=== PATIENT | female | born 1970 | race Caucasian/White ===

== ENCOUNTER 2016-11-16 13:04 | Emergency (ER) | payer OTHER ==
[~2016-11-16] VITALS: Ht 162.6 cm; Wt 80.7 kg
[2016-11-16 13:40] VITALS: BP 119/76
--- NOTE | 2016-11-16 13:53 | NUR ---
Patient ambulated to bed 05.
--- NOTE | 2016-11-16 13:55 | NUR ---
46F BIB SELF C/O ANTERIOR HEADACHE, PRESSURE, RADIATES TO BL SIDES OF HEAD, 06/05 X 3 DAYS; PT STATES DIZZY, BUT DENIES INJURY/TRAUMA TO HEAD, OR BLURRY VISION AT THIS TIME; PT C/O LEFT SIDED ABDOMINAL PAIN, SHARP, NON-RADIATING, 04/05 X 3 DAYS; ABDOMEN ROUND, NON-TENDER, ACTIVE BOWEL SOUNDS X 4 QUADRANTS; PT STATES HAS NAUSEA, BUT DENIES VOMITING/DIARRHEA AT THIS TIME; A&OX4, BL LUNG SOUND CLEAR, RR EVEN/UNLABORED, SKIN IS WARM/DRY/INTACT AT THIS TIME; PT RESTING IN BED W/ HOB ELEVATED AND IN LOWEST POSITION; POSITIONED FOR COMFORT; ER MD MADE AWARE OF STATUS. WILL CONTINUE TO MONITOR.
--- NOTE | 2016-11-16 15:38 | NUR ---
Sunil garcia in EDM - 11/16/16 at 1542 by MEDSABINO RICKY REYES EVALUATING PT AT BEDSIDE.
--- NOTE | 2016-11-16 15:38 | NUR ---
ER MD DR. TA EVALUATING PT AT BEDSIDE.
[2016-11-16] MEDS ORDERED: IBUPROFEN 600 MG TAB PO ONE (15:40)
[2016-11-16] MEDS ORDERED: ONDANSETRON 4 MG ODT PO ONE (15:40)
[2016-11-16] MEDS ORDERED: ACETAMINOPHEN EXTRA STRENGTH 500 MG TAB PO ONE (15:40)
[2016-11-16 17:48] VITALS: BP 131/72
--- NOTE | 2016-11-16 17:48 | NUR ---
Patient discharged with v/s stable. Written and verbal after care instructions given and explained. Patient alert, oriented and verbalized understanding of instructions. Ambulatory with steady gait. All questions addressed prior to discharge. ID band removed. Patient advised to follow up with PMD. Rx of TYLENOL W/ CODEINE NO.3 given. Patient educated on indication of medication including possible reaction and side effects. Opportunity to ask questions provided and answered.
== END 2016-11-16 17:48 | disposition home or self-care (01) ==
LOC: MED 13:04
DX: B34.9 Viral infection, unspecified (principal); Z88.5 Allergy status to narcotic agent
CPT/HCPCS: 36415; 82948; 87804; 99284; S0119

== ENCOUNTER 2017-08-30 15:12 | Emergency (ER) | payer OTHER ==
[~2017-08-30] VITALS: Ht 160 cm; Wt 87.2 kg
[2017-08-30 15:17] VITALS: BP 113/71
--- NOTE | 2017-08-30 16:35 | NUR ---
PT C/O X1 WEEK OF NASAL CONGESTION, MACIAS, SOAR THROAT, AND GENERAL BODY ACHES. IN CHAIR. A&OX4, NO RESPIRATORY DISTRESS, ABLE TO VERBALIZE NEEDS, MD AWARE, CONTINUE TO MONITOR.
[2017-08-30 17:33] VITALS: BP 113/71
--- NOTE | 2017-08-30 17:41 | NUR ---
Patient discharged with v/s stable. Written and verbal after care instructions given and explained. Patient alert, oriented and verbalized understanding of instructions. Ambulatory with steady gait. All questions addressed prior to discharge. ID band removed. Patient advised to follow up with PMD. Rx of MOTRIN, ROBITUSSIN, AND TAMIFLU given. Patient educated on indication of medication including possible reaction and side effects. Opportunity to ask questions provided and answered.
--- NOTE | 2017-08-30 17:46 | NUR ---
Note radha in EDM - 08/30/17 at 1747 by ZAIRA Patient discharged with v/s stable. Written and verbal after care instructions given and explained to mom who expressed understanding. Patient alert, oriented and verbalized understanding of instructions. Ambulatory with steady gait. All questions addressed prior to discharge. ID band removed. Patient advised to follow up with PMD. Rx of tylenol, motrin, and tamiful given. Patient educated on indication of medication including possible reaction and side effects. Opportunity to ask questions provided and answered.
== END 2017-08-30 17:41 | disposition home or self-care (01) ==
LOC: MED 15:12
DX: J11.1 Influenza due to unidentified influenza virus with other respiratory manifestations (principal); J02.9 Acute pharyngitis, unspecified; Z88.5 Allergy status to narcotic agent
CPT/HCPCS: 99283

== ENCOUNTER 2017-09-01 19:49 | Emergency (ER) | payer OTHER ==
[~2017-09-01] VITALS: Ht 165.1 cm; Wt 87.1 kg
[2017-09-01 20:08] VITALS: BP 131/81
--- NOTE | 2017-09-01 20:14 | NUR ---
TO LOBBY, A/W YANIRA ADAMSON NOTED
--- NOTE | 2017-09-01 23:16 | NUR ---
AMBULATED TO ER BED 3
--- NOTE | 2017-09-01 23:20 | NUR ---
PATIENT PRESENTS TO ED WITH C/O COUGH. SEEN IN ER 3 DAYS AGO PT DENIES N/V/D; SKIN IS PINK/WARM/DRY; AAOX4 WITH EVEN AND STEADY GAIT; LUNGS CLEAR BL; HR EVEN AND REGULAR; PT DENIES ANY FEVER, CP OR SOB AT THIS TIME; PATIENT STATES PAIN OF 0/10 AT THIS TIME; VSS; PATIENT POSITIONED FOR COMFORT; HOB ELEVATED; BEDRAILS UP X2; BED DOWN. ER MD MADE AWARE OF PT STATUS.
[2017-09-02] MEDS ORDERED: ALBUTEROL HFA MDI 90 MCG/ACTUATION 8 GM INH PRN (00:35)
[2017-09-02 01:11] VITALS: BP 127/78
--- NOTE | 2017-09-02 01:13 | NUR ---
Patient discharged with v/s stable. Written and verbal after care instructions given and explained. Patient alert, oriented and verbalized understanding of instructions. Ambulatory with steady gait. All questions addressed prior to discharge. ID band removed. Patient advised to follow up with PMD. Rx of TESSALON 100MG, PROAIR HFA 90 HHN given. Patient educated on indication of medication including possible reaction and side effects. Opportunity to ask questions provided and answered.
== END 2017-09-02 01:11 | disposition home or self-care (01) ==
LOC: MED 19:49
DX: J11.1 Influenza due to unidentified influenza virus with other respiratory manifestations (principal); Z88.5 Allergy status to narcotic agent
CPT/HCPCS: 71045; 99283

== ENCOUNTER 2017-10-17 15:42 | Emergency (ER) | payer OTHER ==
[~2017-10-17] VITALS: Ht 165.1 cm; Wt 88.5 kg
[2017-10-17 15:54] VITALS: BP 140/87
--- NOTE | 2017-10-17 16:01 | NUR ---
STREP AND INFLUENZA SWABS COLLECTED IN TRIAGE AND SENT TO LAB.
--- NOTE | 2017-10-17 17:43 | NUR ---
DR MEAD IN ROOM FOR EXAM
[2017-10-17 17:55] VITALS: BP 132/81
--- NOTE | 2017-10-17 17:56 | NUR ---
Patient discharged with v/s stable. Written and verbal after care instructions given and explained. Patient alert, oriented and verbalized understanding of instructions. Ambulatory with steady gait. All questions addressed prior to discharge. ID band removed. Patient advised to follow up with PMD. Rx of KEFLEX, PROMETHAZINE given. Patient educated on indication of medication including possible reaction and side effects. Opportunity to ask questions provided and answered.
== END 2017-10-17 17:56 | disposition home or self-care (01) ==
LOC: MED 15:42
DX: J06.9 Acute upper respiratory infection, unspecified (principal); Z88.5 Allergy status to narcotic agent
CPT/HCPCS: 36415; 87081; 87804; 99284

== ENCOUNTER 2018-03-03 14:11 | Emergency (ER) | payer OTHER ==
[~2018-03-03] VITALS: Ht 160 cm; Wt 86.6 kg
[2018-03-03 14:53] VITALS: BP 107/85
[2018-03-03] MEDS ORDERED: KETOROLAC 30 MG/ML VIAL ONE (19:04)
[2018-03-03] MEDS: KETOROLAC 60 MG/2 ML VIAL IM ONE (19:06)
[2018-03-03 19:24] VITALS: BP 131/78
== END 2018-03-03 19:24 | disposition home or self-care (01) ==
LOC: MED 14:11
DX: N83.202 Unspecified ovarian cyst, left side (principal); Z88.6 Allergy status to analgesic agent
CPT/HCPCS: 81002; 81025; 96372; 99283; J1885

== ENCOUNTER 2018-11-06 10:07 | Emergency (ER) | payer OTHER ==
[~2018-11-06] VITALS: Ht 162.6 cm; Wt 81.2 kg
[2018-11-06 10:16] VITALS: BP 117/67
--- NOTE | 2018-11-06 10:40 | NUR ---
PATIENT PRESENTS TO ED WITH THE CHIEF C/O SORE THROAT AND NASAL CONGESTION FOR SIX DAYS. PT REPORTS HARD TIME BREATHING THROUGH NOSE DUE TO CONGESTION. HX OF NOSE SURGERY. REPORTS COUGH NO BLOOD IN COUGH. LUNGS CLEAR. DENIES N/V/D. SKIN IS PINK/WARM/DRY. AAOX4 WITH EVEN AND STEADY GAIT. LUNGS CLEAR BL. HR EVEN AND REGULAR; PT DENIES ANY FEVER, CP, SOB, OR COUGH AT THIS TIME; PATIENT STATES PAIN OF 10/10 AT THIS TIME. VSS. PATIENT POSITIONED FOR COMFORT; HOB ELEVATED; BEDRAILS UP X2. BED DOWN. ER MD MADE AWARE OF PT STATUS.
[2018-11-06] MEDS ORDERED: KETOROLAC 60 MG/2 ML VIAL IM ONE (11:15)
--- NOTE | 2018-11-06 11:44 | NUR ---
PT APPEARS TO BE RELAXED RESTING IN BED. VERBALIZED PAIN DECREASING.
--- NOTE | 2018-11-06 11:45 | NUR ---
Patient discharged with v/s stable. Written and verbal after care instructions given and explained. Patient alert, oriented and verbalized understanding of instructions. Ambulatory with steady gait. All questions addressed prior to discharge. ID band removed. Patient advised to follow up with PMD. Rx of TESSALON, NAPROSYN AND CLARITIN given. Patient educated on indication of medication including possible reaction and side effects. Opportunity to ask questions provided and answered.
[2018-11-06 11:46] VITALS: BP 118/69
== END 2018-11-06 11:45 | disposition home or self-care (01) ==
LOC: MED 10:07
DX: B34.9 Viral infection, unspecified (principal); H92.02 Otalgia, left ear; Z88.5 Allergy status to narcotic agent; Z90.710 Acquired absence of both cervix and uterus; Z98.890 Other specified postprocedural states
CPT/HCPCS: 96372; 99283; J1885

== ENCOUNTER 2018-11-21 12:48 | Emergency (ER) | payer OTHER ==
[~2018-11-21] VITALS: Ht 162.6 cm; Wt 81.6 kg
[2018-11-21 13:02] VITALS: BP 129/75
--- NOTE | 2018-11-21 13:10 | NUR ---
48Y/F BIB SELF WITH C/O LLQ AB PAIN X 3 DAYS, NON RADIATING, -N/V/D 10/ SHARP SEVERE PAIN , PT STATES SHE TOOK TRAMADOL AT 1130, NOT HELPING, PT IS AAOX4, VSS, BED DOWN, BEDRAIL UP X 1, ER MD AWARE AND NOTIFIED OF PT STATUS. HX OF OVARIAN CYST
--- NOTE | 2018-11-21 13:36 | NUR ---
Patient being evaluated by physician at bedside.
--- NOTE | 2018-11-21 13:51 | NUR ---
URINE COLLECTED AND SENT TO LAB
[2018-11-21 14:03] LABS: BASOPHILS # (AUTO) 0.1 K/uL (0.00-0.22); BASOPHILS % (AUTO) 0.6 % (0.0-2.0); EOSINOPHILS # (AUTO) 0.2 K/uL (0-0.4); EOSINOPHILS % (AUTO) 1.6 % (0.0-4.0); HEMATOCRIT 42.5 % (36-48); HEMOGLOBIN 14.3 g/dL (12.0-16.0); LYMPHOCYTES % (AUTO) 29.1 % (20.5-51.1); MEAN CORPUSCULAR HEMOGLOBIN 31 pg (27-31); MEAN CORPUSCULAR HGB CONC 34 g/dL (33-37); MEAN CORPUSCULAR VOLUME 93.5 fL (80-94); MONOCYTES # (AUTO) 0.7 K/uL (0.8-1.0); NEUTROPHILS # (AUTO) 6.4 K/uL (1.8-7.7); NEUTROPHILS % (AUTO) 61.7 % (42.2-75.2); PLATELET COUNT (AUTO) 299 K/uL (140-450); RED BLOOD CELL COUNT(AUTO) 4.54 MIL/uL (4.20-5.40); RED CELL DISTRIBUTION WIDTH 13.9 % (11.6-13.7); WHITE BLOOD COUNT (AUTO) 10.4 K/uL (4.8-10.8)
[2018-11-21 14:13] LABS: APPEARANCE,URINE CLEAR (CLEAR); BILIRUBIN,URINE NEGATIVE (NEGATIVE); BLOOD, URINE NEGATIVE (NEGATIVE); COLOR,URINE YELLOW (YELLOW); LEUKOCYTE ESTERASE ,URINE NEGATIVE (NEGATIVE); NITRITE, URINE NEGATIVE (NEGATIVE); UGLUCOSE NEGATIVE (NEGATIVE)
[2018-11-21 14:18] LABS: CARBON DIOXIDE 29.1 mmol/L (21-32); CREATININE 0.8 mg/dL (0.6-1.3); POTASSIUM 4.1 mmol/L (3.5-5.1); TOTAL BILIRUBIN 0.4 mg/dL (0.0-1.0)
[2018-11-21] MEDS ORDERED: metroNIDAZOLE 250 MG TAB PO ONE (15:05)
[2018-11-21 15:54] VITALS: BP 132/72
--- NOTE | 2018-11-21 15:55 | NUR ---
Patient discharged with v/s stable. Written and verbal after care instructions given and explained. Patient alert, oriented and verbalized understanding of instructions. Ambulatory with steady gait. All questions addressed prior to discharge. ID band removed. Patient advised to follow up with PMD. Rx of CIPROFLOXACIN, ZOFRAN,FLAGYL given. Patient educated on indication of medication including possible reaction and side effects. Opportunity to ask questions provided and answered.
== END 2018-11-21 15:55 | disposition home or self-care (01) ==
LOC: MED 12:48
DX: K57.92 Diverticulitis of intestine, part unspecified, without perforation or abscess without bleeding (principal); Z88.5 Allergy status to narcotic agent; Z90.710 Acquired absence of both cervix and uterus
CPT/HCPCS: 36415; 80053; 81003; 85025; 99284

== ENCOUNTER 2018-11-23 19:07 | Inpatient (IN) | payer OTHER ==
[~2018-11-23] VITALS: Ht 162.6 cm; Wt 78.9 kg
[2018-11-23 19:13] VITALS: BP 137/71
--- NOTE | 2018-11-23 21:10 | NUR ---
PT AMBULATEF TO ER BED 05
--- NOTE | 2018-11-23 21:23 | NUR ---
PT TO ED WITH C/O HEADACHE WITH NAUSEA. NO NEURO DEFICTS NOTED. PT DENIES EPISODES OF VOMITTING. PT REPORTS TAKING NORCO 5/325 X 2 FOR PAIN AT HOME WITH NO RELIEF. PT PLACED INTO BED, PENDING MD NAVARRO.
[2018-11-23] MEDS ORDERED: metroNIDAZOLE 500 MG/NS PREMIX 100 ML IV ONE (21:30)
[2018-11-23] MEDS ORDERED: KETOROLAC 30 MG/ML VIAL IVP ONE (21:30)
[2018-11-23] MEDS ORDERED: LEVOFLOXACIN 500 MG/D5W PREMIX 100 ML IV ONE (21:30)
[2018-11-23] MEDS ORDERED: NACL 0.9% 1,000 ML IV ONE (21:30)
--- NOTE | 2018-11-23 21:45 | NUR ---
LAB AT BEDSIDE.
[2018-11-23 22:09] LABS: BASOPHILS % (AUTO) 0.6 % (0.0-2.0); EOSINOPHILS # (AUTO) 0.2 K/uL (0-0.4); EOSINOPHILS % (AUTO) 2.2 % (0.0-4.0); HEMOGLOBIN 12.8 g/dL (12.0-16.0); LYMPHOCYTES # (AUTO) 2.1 K/uL (2.5-16.5); MEAN CORPUSCULAR HEMOGLOBIN 32 pg (27-31); MEAN CORPUSCULAR HGB CONC 34 g/dL (33-37); MONOCYTES # (AUTO) 0.6 K/uL (0.8-1.0); MONOCYTES % (AUTO) 8.1 % (1.7-9.3); NEUTROPHILS # (AUTO) 4.5 K/uL (1.8-7.7); NEUTROPHILS % (AUTO) 61.1 % (42.2-75.2); PLATELET COUNT (AUTO) 282 K/uL (140-450); RED BLOOD CELL COUNT(AUTO) 4.05 MIL/uL (4.20-5.40); RED CELL DISTRIBUTION WIDTH 13.8 % (11.6-13.7); WHITE BLOOD COUNT (AUTO) 7.4 K/uL (4.8-10.8)
[2018-11-23 22:10] LABS: APPEARANCE,URINE CLEAR (CLEAR); BILIRUBIN,URINE NEGATIVE (NEGATIVE); BLOOD, URINE NEGATIVE (NEGATIVE); LEUKOCYTE ESTERASE ,URINE TRACE (NEGATIVE); NITRITE, URINE NEGATIVE (NEGATIVE); PH,URINE 5.5 (5.0-9.0); UGLUCOSE NEGATIVE (NEGATIVE)
[2018-11-23 22:19] LABS: COLOR,URINE STRAW (YELLOW)
[2018-11-23 22:22] LABS: RBC,URINE NONE SEEN /HPF (0-5)
[2018-11-23 22:23] LABS: WBC,URINE 0-5 /HPF (0-5)
--- NOTE | 2018-11-23 22:30 | NUR ---
PT REPORTS PAIN DECREASED TO 4/10 AFTER TORADOL ADMIN.
[2018-11-23 22:36] LABS: ALBUMIN 3.4 g/dL (3.4-5.0); ANION GAP 12.1 (8-16); CARBON DIOXIDE 28.6 mmol/L (21-32); CREATININE 1.2 mg/dL (0.6-1.3); POTASSIUM 4.7 mmol/L (3.5-5.1); TOTAL BILIRUBIN 0.3 mg/dL (0.0-1.0)
[2018-11-24 00:10] VITALS: BP 119/54
--- NOTE | 2018-11-24 00:10 | NUR ---
Patient will be admitted to care of DR GUZMAN. Admited to MED SURG. Will go to room 123B. Belongings list completed. Report to AV CHAUDHARI.
--- NOTE | 2018-11-24 00:10 | NUR ---
RECEIVED REPORT FROM ER NURSE. PATIENT AWAKE, ALERT, AND COOPERATIVE. RESPIRATION EVEN UNLABORED ON ROOM AIR. DENIES PAIN. SKIN IS WARM, DRY, AND INTACT. IV PATENT AND INTACT. LUNG SOUNDS CLEAR ON AUSCULTATION. BOWEL SOUNDS ACTIVE IN 4 QUADRANTS. ABDOMEN SOFT AND NON-TENDER. PATIENT IS AMBULATORY AND ABLE TO VERBALIZES NEEDS. MRSA SCREEN DONE. VITALS: BP 119/54, HR 53, RR 16, SPO2 97% ROOM AIR, T 97.8. ORIENT PATIENT TO ROOM, STAFF, AND CALL LIGHT. PLAN OF CARE WAS DISCUSSED. ALL SAFETY MEASURE ARE IN PLACE. BED IS AT LOW POSITION. CALL LIGHT WITHIN REACH AND VERBALIZE ITS USE. WILL CONTINUE TO MONITOR
[2018-11-24] MEDS: DEXT 5% / NACL 0.45% 1,000 ML IV SCH ×2 (01:55→14:35)
--- NOTE | 2018-11-24 02:00 | NUR ---
CHECKED PATIENT. PATIENT SLEEPING COMFORTABLY. RESPIRATION EVEN UNLABORED ON ROOM AIR. NO DISTRESS NOTED. WILL CONTINUE TO MONITOR.
[2018-11-24] MEDS ORDERED: MORPHINE SULFATE 2 MG/ML SYR IVP PRN (02:30)
[2018-11-24] MEDS ORDERED: INFLUENZA VIRUS VACCINE QUAD 0.5 ML SYR IMVAC PRN (03:20)
--- NOTE | 2018-11-24 04:00 | NUR ---
CHECKED PATIENT. PATIENT SLEEPING RESPIRATION EVEN UNLABORED ON ROOM AIR. NO DISTRESS NOTED. WILL CONTINUE TO MONITOR.
[2018-11-24] MEDS: metroNIDAZOLE 500 MG/NS PREMIX 100 ML IV SCH ×3 (04:20→20:11)
--- NOTE | 2018-11-24 07:11 | NUR ---
ENDORSED PATIENT TO DAY SHIFT NURSE FOR CONTINUITY OF CARE. PATIENT IS STABLE.
--- NOTE | 2018-11-24 07:19 | NUR ---
RECEIVED REPORT FROM MINING SUPPORT WORKER RN NURSE. PT RESTING IN BED, EASILY AROUSABLE BY VOICE. RESPIRATIONS EVEN AND UNLABORED, ON ROOM AIR. STATES MILD HEADACHE, NO NEED FOR PAIN MEDICATION. SKIN IS WARM, DRY, AND INTACT. HYPOACTIVE BOWEL SOUNDS. IV PATENT AND INTACT, INFUSING IVF PER MD ORDERS. PATIENT IS AMBULATORY WITHOUT ASSIST. ALL SAFETY PRECAUTIONS IN PLACE, WILL CONTINUE TO MONITOR.
[2018-11-24 08:00] VITALS: BP 128/71
--- NOTE | 2018-11-24 09:29 | NUR ---
DR. CERRATO HAS SEEN PATIENT, DISCUSSED POC, AND ANSWERED ALL QUESTIONS. PT VERBALIZED UNDERSTANDING.
--- NOTE | 2018-11-24 09:53 | NUR ---
PT TAKEN FOR CT HEAD.
[2018-11-24 09:56] LABS: BASOPHILS % (AUTO) 0.7 % (0.0-2.0); EOSINOPHILS # (AUTO) 0.2 K/uL (0-0.4); EOSINOPHILS % (AUTO) 2.7 % (0.0-4.0); HEMATOCRIT 38.8 % (36-48); LYMPHOCYTES # (AUTO) 1.7 K/uL (2.5-16.5); LYMPHOCYTES % (AUTO) 25.5 % (20.5-51.1); MEAN CORPUSCULAR HEMOGLOBIN 32 pg (27-31); MEAN CORPUSCULAR HGB CONC 33 g/dL (33-37); MEAN CORPUSCULAR VOLUME 94.5 fL (80-94); MONOCYTES # (AUTO) 0.6 K/uL (0.8-1.0); MONOCYTES % (AUTO) 8.7 % (1.7-9.3); NEUTROPHILS # (AUTO) 4.1 K/uL (1.8-7.7); NEUTROPHILS % (AUTO) 62.4 % (42.2-75.2); PLATELET COUNT (AUTO) 300 K/uL (140-450); RED BLOOD CELL COUNT(AUTO) 4.11 MIL/uL (4.20-5.40); RED CELL DISTRIBUTION WIDTH 13.4 % (11.6-13.7); WHITE BLOOD COUNT (AUTO) 6.6 K/uL (4.8-10.8)
[2018-11-24] MEDS ORDERED: ACETAMINOPHEN 325 MG TAB PO PRN (10:05)
[2018-11-24 10:09] LABS: ANION GAP 10.5 (8-16); CARBON DIOXIDE 29.2 mmol/L (21-32); CREATININE 1.2 mg/dL (0.6-1.3); POTASSIUM 4.7 mmol/L (3.5-5.1)
[2018-11-24 10:11] LABS: ALBUMIN 3.1 g/dL (3.4-5.0); TOTAL BILIRUBIN 0.3 mg/dL (0.0-1.0)
--- NOTE | 2018-11-24 11:40 | NUR ---
ADMINISTERED TYLENOL FOR C/O MILD HEADACHE.
--- NOTE | 2018-11-24 13:13 | NUR ---
NOTIFIED PHARMACY THAT PT STATES SHE HAS CHEST PAIN REACTION TO CODEINE. STATES SHE DOES NOT THINK SHE EVER HAD MORPHINE BEFORE.
--- NOTE | 2018-11-24 13:16 | NUR ---
PATIENT TOLERATED CLEAR LIQUID DIET WELL. NO N/V VOMITING, ABD PAIN. FINISHED LUNCH TRAY AND STILL FEELS HUNGER. WILL ADVANCE DIET FOR DINNER.
[2018-11-24 16:00] VITALS: BP 117/69
--- NOTE | 2018-11-24 17:21 | NUR ---
PATIENT DENIES ABD PAIN AND DENIES MACIAS AT THIS TIME. PT STATES SHE "FEELS GOOD".
--- NOTE | 2018-11-24 19:28 | NUR ---
ENDORSED POC TO ROLL TRUCKER RN. PT IN STABLE CONDITION. ENDORSED TO ADV DIET AT TOLERATED PER MD ORDERS.
--- NOTE | 2018-11-24 19:30 | NUR ---
RECEIVED REPORT FROM DAY SHIFT NURSE FOR CONTINUITY OF CARE. PATIENT AWAKE, ALERT,AND COOPERATIVE. RESPIRATION EVEN UNLABORED ON ROOM AIR. DENIES PAIN. SKIN IS WARM AND DRY. IV PATENT AND INTACT. PATIENT IS AMBULATORY WITHOUT ASSIST. PLAN OF CARE WAS DISCUSSED. ALL SAFETY MEASURES ARE IN PLACE. BED IS AT LOW POSITION. CALL LIGHT WITHIN REACH AND VERBALIZES ITS USE. WILL CONTINUE TO MONITOR.
--- NOTE | 2018-11-24 20:00 | NUR ---
INITIAL ASSESSMENT DONE. VITALS WERE TAKEN. PATIENT CONDITION STABLE. WILL CONTINUE TO MONITOR.
--- NOTE | 2018-11-24 20:15 | NUR ---
SCHEDULE MEDS WERE GIVEN AND PATIENT TOLERATED WELL. NO DISTRESS NOTED. WILL CONTINUE TO MONITOR
[2018-11-24] MEDS ORDERED: LEVOFLOXACIN 500 MG/D5W PREMIX 100 ML IV SCH (23:00)
[2018-11-25] VITALS: BP 119/51
--- NOTE | 2018-11-25 | NUR ---
VITALS WERE TAKEN. PATIENT CONDITION STABLE. NO DISTRESS NOTED. WILL CONTINUE TO MONITOR.
--- NOTE | 2018-11-25 02:00 | NUR ---
CHECKED PATIENT. PATIENT SLEEPING. RESPIRATION EVEN UNLABORED ON ROOM AIR. NO DISTRESS NOTED. WILL CONTINUE TO MONITOR.
[2018-11-25] MEDS: DEXT 5% / NACL 0.45% 1,000 ML IV SCH ×2 (03:54→17:15)
[2018-11-25] MEDS: metroNIDAZOLE 500 MG/NS PREMIX 100 ML IV SCH ×2 (03:59→12:21)
--- NOTE | 2018-11-25 04:00 | NUR ---
CHECKED PATIENT. PATIENT SLEEPING RESPIRATION EVEN UNLABORED ON ROOM AIR. NO DISTRESS NOTED. WILL CONTINUE TO MONITOR.
[2018-11-25 07:09] LABS: BASOPHILS % (AUTO) 0.8 % (0.0-2.0); EOSINOPHILS # (AUTO) 0.2 K/uL (0-0.4); EOSINOPHILS % (AUTO) 3.2 % (0.0-4.0); HEMATOCRIT 38.6 % (36-48); HEMOGLOBIN 12.8 g/dL (12.0-16.0); LYMPHOCYTES # (AUTO) 2.1 K/uL (2.5-16.5); LYMPHOCYTES % (AUTO) 34.1 % (20.5-51.1); MEAN CORPUSCULAR HEMOGLOBIN 31 pg (27-31); MEAN CORPUSCULAR HGB CONC 33 g/dL (33-37); MEAN CORPUSCULAR VOLUME 94.6 fL (80-94); MONOCYTES # (AUTO) 0.4 K/uL (0.8-1.0); MONOCYTES % (AUTO) 6.6 % (1.7-9.3); NEUTROPHILS # (AUTO) 3.5 K/uL (1.8-7.7); NEUTROPHILS % (AUTO) 55.3 % (42.2-75.2); PLATELET COUNT (AUTO) 324 K/uL (140-450); RED BLOOD CELL COUNT(AUTO) 4.08 MIL/uL (4.20-5.40); RED CELL DISTRIBUTION WIDTH 13.8 % (11.6-13.7); WHITE BLOOD COUNT (AUTO) 6.3 K/uL (4.8-10.8)
[2018-11-25 07:14] LABS: ANION GAP 10.5 (8-16); CARBON DIOXIDE 27.8 mmol/L (21-32); CREATININE 0.9 mg/dL (0.6-1.3); POTASSIUM 4.3 mmol/L (3.5-5.1); TOTAL BILIRUBIN 0.4 mg/dL (0.0-1.0)
--- NOTE | 2018-11-25 07:37 | NUR ---
ENDORSED PATIENT TO DAY SHIFT NURSE. PATIENT STABLE
--- NOTE | 2018-11-25 07:38 | NUR ---
RECEIVED REPORT FROM MUD PLANT OPERATOR NURSE. PATIENT LYING DOWN IN BED COMFORTABLY. NO DISTRESS NOTED. DENIES ANY PAIN. DENIES ANY VOMITING, ABD PAIN THROUGHOUT MUD PLANT OPERATOR. RESPIRATIONS EVEN, UNLABORED, ON ROOM AIR. AAOX4, CALM, COOPERATIVE, SKIN COLOR APPROPRIATE TO ETHNICITY, WARM TO TOUCH. SKIN INTACT. IV SITE INTACT, PATENT, AND INFUSING IVF PER MD ORDERS. REVIEWED PLAN OF CARE WITH PATIENT. PATIENT VERBALIZED UNDERSTANDING. SAFETY MEASURES IN PLACE, CALL LIGHT WITHIN REACH. WILL CONTINUE TO MONITOR.
[2018-11-25 08:00] VITALS: BP 130/71
--- NOTE | 2018-11-25 08:45 | NUR ---
PATIENT HAS BEEN SCREENED AND CATEGORIZED MODERATE NUTRITION RISK. PATIENT WILL BE SEEN WITHIN 3-5 DAYS OF ADMISSION. 11/26/18[address]
[2018-11-25] MEDS ORDERED: ENOXAPARIN 40 MG/0.4 ML SYR SUBQ SCH (09:00)
--- NOTE | 2018-11-25 09:29 | NUR ---
PATIENT SITTING IN BED ON HER PHONE. NO DISTRESS NOTED. DENIES ANY PAIN. DENIES ANY NAUSEA AFTER BREAKFAST. REFUSED ENOXAPARIN INJECTION AT THIS TIME. WILL CONTINUE TO MONITOR.
--- NOTE | 2018-11-25 11:39 | NUR ---
PATIENT SITTING IN BED ON HER PHONE. NO DISTRESS NOTED. DENIES ANY PAIN. WILL CONTINUE TO MONITOR.
--- NOTE | 2018-11-25 14:58 | NUR ---
PATIENT SITTING DOWN IN BED ON HER PHONE. NO DISTRESS NOTED. DENIES ANY ABD PAIN. DENIES N/V AFTER REGULAR DIET LUNCH. WILL CONTINUE TO MONITOR.
[2018-11-25 16:00] VITALS: BP 132/71
--- NOTE | 2018-11-25 18:12 | NUR ---
DISCHARGE INSTRUCTIONS GIVEN TO PATIENT IN PREFERRED LANGUAGE OF [place]. ALL BELONGINGS AND PAPERWORK WITH PATIENT. ANSWERED ALL OF PATIENT'S QUESTIONS REGARDING DISCHARGE. PATIENT'S BROTHER AT LOBBY WAITING FOR PATIENT. IV SITE REMOVED WITH MINIMAL BLOOD AND LUMEN COMPLETELY INTACT. ID BANDS REMOVED. AWAITING FOR PATIENT TO GET DRESSED.
--- NOTE | 2018-11-25 18:15 | NUR ---
ESCORTED PATIENT DOWN TO LOBBY VIA STEADY AMBULATION. PATIENT DISCHARGED AT THIS TIME IN STABLE CONDITION TO HOME.
--- NOTE | 2018-11-26 14:45 | NUR ---
CM NOTE I SPOKE WITH BE # [phone] TO SCHEDULE PATIENT'S OUTPATIENT FOLLOW UP APPOINTMENT WITH DR. COCO FREEMAN ON NOVEMBER 29, 2018, 0930, AT THE CLINIC AT [address] [place] [address]. I GAVE THE PATIENT HER OUTPATIENT FOLLOW UP SCHEDULE.
== END 2018-11-25 18:15 | disposition home or self-care (01) | DRG 244 ==
LOC: MED 19:07 → MTU 23:28
PROVIDERS: ADMIT Hospitalist; ATTEND Hospitalist
DX: K57.92 Diverticulitis of intestine, part unspecified, without perforation or abscess without bleeding (principal); N17.9 Acute kidney failure, unspecified; R73.9 Hyperglycemia, unspecified; R51 Headache; J30.9 Allergic rhinitis, unspecified; J32.9 Chronic sinusitis, unspecified; R74.0 Nonspecific elevation of levels of transaminase and lactic acid dehydrogenase [LDH]; Z88.5 Allergy status to narcotic agent; Z90.710 Acquired absence of both cervix and uterus
CPT/HCPCS: 36415; 70450; 76770; 80053; 81001; 82150; 83036; 83605; 83690; 85025; 86140; 87040; 87081; 96365; 96367; 96375; 99285; J1885; J1956; J3490; J7042; Q0092

== ENCOUNTER 2019-01-12 10:25 | Emergency (ER) | payer OTHER ==
[~2019-01-12] VITALS: Ht 162.6 cm; Wt 81.6 kg
[2019-01-12 10:29] VITALS: BP 131/78
--- NOTE | 2019-01-12 10:35 | NUR ---
PATIENT AMBULATED TO BED 2 AT THIS TIME.
--- NOTE | 2019-01-12 10:35 | NUR ---
BIB SELF. C/O SHOULDER AND NECK PAIN 10/ WITH STIFFNESS X1 DAY, HEADACHE 10/10, MILD DIZZINESS SINCE THIS MORNING. PT TX WITH TYLENOL AT 0200 WITH NO RELIEF PT REPORTS FEELING HOT THIS MORNING, CURRENT TEMP 98.4. DENIES N/V/D. PERRLA BRISK 3MM. FULL CLEAR SPEECH. STEADY GAIT. HOB UP. BED SIDE RAILS UP X1. ON LOW BED POSITION, LOCKED. ER MADE AWARE OF PT STATUS.
--- NOTE | 2019-01-12 10:43 | NUR ---
DR CARLSON AT BEDSIDE FOR PT EVALUATION
[2019-01-12] MEDS ORDERED: LORazepam 2 MG/ML VIAL IM ONE (10:50)
[2019-01-12] MEDS ORDERED: KETOROLAC 30 MG/ML VIAL IM ONE (10:50)
--- NOTE | 2019-01-12 11:04 | NUR ---
IM MEDICATION GIVEN ORDERED. PT TOLERATED WELL.
[2019-01-12 12:00] VITALS: BP 132/78
--- NOTE | 2019-01-12 12:00 | NUR ---
Patient discharged with v/s stable. Written and verbal after care instructions given and explained. Patient alert, oriented and verbalized understanding of instructions. Ambulatory with steady gait. All questions addressed prior to discharge. ID band removed. Patient advised to follow up with PMD. Rx of Valium, Naprosyn given. Patient educated on indication of medication including possible reaction and side effects. Opportunity to ask questions provided and answered.
== END 2019-01-12 12:00 | disposition home or self-care (01) ==
LOC: MED 10:25
DX: G44.209 Tension-type headache, unspecified, not intractable (principal); J45.909 Unspecified asthma, uncomplicated; Z90.49 Acquired absence of other specified parts of digestive tract; Z88.5 Allergy status to narcotic agent
CPT/HCPCS: 96372; 99283; J1885; J2060

== ENCOUNTER 2019-02-07 11:44 | Emergency (ER) | payer OTHER ==
[~2019-02-07] VITALS: Ht 162.6 cm; Wt 81.6 kg
[2019-02-07 11:54] VITALS: BP 118/84
--- NOTE | 2019-02-07 11:56 | NUR ---
Patient ambulated to bed 12. RN evaluating patient at bedside.
--- NOTE | 2019-02-07 12:00 | NUR ---
PATIENT PRESENTS TO ED WITH C/O LLQ PAIN X 4 DAYS, HEADACHE, DIZZINESS AND NAUSEA. PAIN 10/10 PT SKIN IS PINK/WARM/DRY; AAOX4 WITH EVEN AND STEADY GAIT; LUNGS CLEAR BL; HR EVEN AND REGULAR;PATIENT POSITIONED FOR COMFORT; HOB ELEVATED; BEDRAILS UP X2; BED DOWN. ER MD TO EVALUATE PT.
[2019-02-07] MEDS ORDERED: NACL 0.9% 1,000 ML IV ONE (12:30)
[2019-02-07] MEDS ORDERED: NACL 0.9% 2,000 ML IV SCH (12:30)
[2019-02-07] MEDS ORDERED: PROMETHAZINE 25 MG/ML VIAL IM ONE (12:30)
[2019-02-07] MEDS ORDERED: KETOROLAC 30 MG/ML VIAL IVP ONE (12:30)
--- NOTE | 2019-02-07 12:33 | NUR ---
DR PERALES AT BEDSIDE FOR PT EVALUATION
--- NOTE | 2019-02-07 13:08 | NUR ---
PT TAKEN TO CT VIA WHEEL CHAIR BY SEMICONDUCTOR MANUFACTURING TECHNICIAN
[2019-02-07 13:15] LABS: BASOPHILS # (AUTO) 0.1 K/uL (0.00-0.22); BASOPHILS % (AUTO) 0.8 % (0.0-2.0); EOSINOPHILS # (AUTO) 0.2 K/uL (0-0.4); EOSINOPHILS % (AUTO) 2.9 % (0.0-4.0); HEMATOCRIT 39.3 % (36-48); HEMOGLOBIN 13.1 g/dL (12.0-16.0); MEAN CORPUSCULAR HEMOGLOBIN 32 pg (27-31); MEAN CORPUSCULAR HGB CONC 33 g/dL (33-37); MEAN CORPUSCULAR VOLUME 94.6 fL (80-94); MONOCYTES # (AUTO) 0.5 K/uL (0.8-1.0); MONOCYTES % (AUTO) 7.4 % (1.7-9.3); NEUTROPHILS # (AUTO) 3.5 K/uL (1.8-7.7); NEUTROPHILS % (AUTO) 47.9 % (42.2-75.2); PLATELET COUNT (AUTO) 311 K/uL (140-450); RED BLOOD CELL COUNT(AUTO) 4.15 MIL/uL (4.20-5.40); WHITE BLOOD COUNT (AUTO) 7.4 K/uL (4.8-10.8)
[2019-02-07 13:18] LABS: APPEARANCE,URINE CLEAR (CLEAR); BILIRUBIN,URINE NEGATIVE (NEGATIVE); BLOOD, URINE NEGATIVE (NEGATIVE); COLOR,URINE YELLOW (YELLOW); LEUKOCYTE ESTERASE ,URINE NEGATIVE (NEGATIVE); NITRITE, URINE NEGATIVE (NEGATIVE); PH,URINE 6.5 (5.0-9.0); UGLUCOSE NEGATIVE (NEGATIVE)
--- NOTE | 2019-02-07 13:20 | NUR ---
PT TAKEN BACK TO ROOM VIA WHEEL CHAIR FROM CT BY GREEN MEAT PACKER
[2019-02-07 13:32] LABS: ANION GAP 10.2 (8-16); CARBON DIOXIDE 29.4 mmol/L (21-32); CREATININE 0.7 mg/dL (0.6-1.3); POTASSIUM 4.6 mmol/L (3.5-5.1)
[2019-02-07 13:45] LABS: ALBUMIN 3.7 g/dL (3.4-5.0); TOTAL BILIRUBIN 0.3 mg/dL (0.0-1.0)
[2019-02-07 14:29] VITALS: BP 118/84
--- NOTE | 2019-02-07 14:29 | NUR ---
IV removed, catheter intact and site benign. Applied folded 4x4 gauze and tape to stop bleeding.
--- NOTE | 2019-02-07 14:29 | NUR ---
Patient discharged with v/s stable. Written and verbal after care instructions given and explained. Patient alert, oriented and verbalized understanding of instructions. Ambulatory with steady gait. All questions addressed prior to discharge. ID band removed. Patient advised to follow up with PMD. Rx of BENTYLANABID given. Patient educated on indication of medication including possible reaction and side effects. Opportunity to ask questions provided and answered.
== END 2019-02-07 14:27 | disposition home or self-care (01) ==
LOC: MED 11:44
DX: K57.90 Diverticulosis of intestine, part unspecified, without perforation or abscess without bleeding (principal); J45.909 Unspecified asthma, uncomplicated; Z88.5 Allergy status to narcotic agent
CPT/HCPCS: 36415; 74176; 80053; 81003; 81025; 82150; 83605; 83690; 85025; 87040; 87086; 96372; 96374; 99284; J1885; J2550; J7030

== ENCOUNTER 2019-06-06 16:53 | Emergency (ER) | payer SELFPAY ==
[~2019-06-06] VITALS: Ht 165.1 cm; Wt 81.6 kg
[2019-06-06 17:11] VITALS: BP 142/82
--- NOTE | 2019-06-06 17:12 | NUR ---
TO LOBBY AWAITING BED IN ED.
--- NOTE | 2019-06-06 17:48 | NUR ---
PATIENT AMBULATED TO BED 4 AT THIS TIME.
--- NOTE | 2019-06-06 18:07 | NUR ---
PT C/O NASAL CONGESTION, PRODUCTIVE COUGH WITH GREENISH/WHITE PHLEGM, FRONTAL AND PARANASAL SINUS PAIN X 5 DAYS. EAR CANNALS ARE WITH BROWNISH EAR WAX W/O EDEMA OR ERYTHEMA. +2 EDEMA AND ERYTHEMA NOTICED IN PT'S NASAL CAVITIES AND THROAT. NO DISCHARGE OR WHITE SPOTS NOTICED ON PT'S THROAT. PATIENT STATES PAIN OF 10/10 AT THIS TIME; VSS; PATIENT POSITIONED FOR COMFORT; HOB ELEVATED; BEDRAILS UP X1; BED DOWN. ER MD MADE AWARE OF PT STATUS.
--- NOTE | 2019-06-06 18:50 | NUR ---
DR. LOCKHART IS EVALUATING PT AT BEDSIDE.
[2019-06-06] MEDS ORDERED: guaiFENesin DM 200/20 MG-10 ML 10 ML UDC PO STA (18:53)
[2019-06-06] MEDS ORDERED: KETOROLAC 30 MG/ML VIAL IM STA (18:53)
--- NOTE | 2019-06-06 19:18 | NUR ---
Pt report given to AV Allen. Transfer of care at this time.
--- NOTE | 2019-06-06 19:19 | NUR ---
RECEIVED REPORT FROM AV MITCHELL. TRANSFER OF CARE AT THIS TIME. PT STABLE.
--- NOTE | 2019-06-06 19:29 | NUR ---
Patient discharged with v/s stable. Written and verbal after care instructions given and explained. Patient alert, oriented and verbalized understanding of instructions. Ambulatory with to home. All questions addressed prior to discharge. ID band removed. Patient advised to follow up with PMD. Rx of AUGMENTIN, BENZONATATE, AND MUCINEX given. Patient educated on indication of medication including possible reaction and side effects. Opportunity to ask questions provided and answered.
[2019-06-06 19:30] VITALS: BP 121/77
== END 2019-06-06 19:29 | disposition home or self-care (01) ==
LOC: MED 16:53
DX: J06.9 Acute upper respiratory infection, unspecified (principal); J32.9 Chronic sinusitis, unspecified; J45.909 Unspecified asthma, uncomplicated; Z88.5 Allergy status to narcotic agent
CPT/HCPCS: 96372; 99283; J1885

== ENCOUNTER 2019-06-13 14:05 | Emergency (ER) | payer OTHER ==
[~2019-06-13] VITALS: Ht 165.1 cm; Wt 81.6 kg
[2019-06-13 14:10] VITALS: BP 106/71
--- NOTE | 2019-06-13 14:12 | NUR ---
TO LOBBY AWAITING BED IN ED
--- NOTE | 2019-06-13 15:47 | NUR ---
PT AMBULATED TO ER BED 02
--- NOTE | 2019-06-13 15:55 | NUR ---
49 YR AAO X4 F AMBULATES TO BED 2 W/ C/O COUGH AND CONGESTIONS 16 DAYS. PRESCRIBED AUGMENTIN, BENZONATATE, MUCINEX ON 06/06/19 W/O RELIEF.
--- NOTE | 2019-06-13 18:02 | NUR ---
WAITING FOR MD TO BE SEEN
[2019-06-13] MEDS ORDERED: KETOROLAC 30 MG/ML VIAL IM ONE (18:25)
[2019-06-13 18:55] VITALS: BP 108/61
--- NOTE | 2019-06-13 18:55 | NUR ---
Patient discharged with v/s stable. Written and verbal after care instructions given and explained. Patient alert, oriented and verbalized understanding of instructions. Ambulatory with steady gait. All questions addressed prior to discharge. ID band removed. Patient advised to follow up with PMD. Rx of Motrin, Albuterol, Claritin, Acetaminophen given. Patient educated on indication of medication including possible reaction and side effects. Opportunity to ask questions provided and answered.
== END 2019-06-13 18:55 | disposition home or self-care (01) ==
LOC: MED 14:05
DX: J45.909 Unspecified asthma, uncomplicated (principal); Z88.5 Allergy status to narcotic agent
CPT/HCPCS: 96372; 99283; J1885

== ENCOUNTER 2020-01-14 14:55 | Emergency (ER) | payer OTHER, SELFPAY ==
[~2020-01-14] VITALS: Ht 165.1 cm; Wt 82.6 kg
[2020-01-14 15:21] VITALS: BP 119/79
--- NOTE | 2020-01-14 15:22 | NUR ---
TOSIN JUAREZ AT BEDSIDE.
--- NOTE | 2020-01-14 15:27 | NUR ---
PRESENTS TO ED WITH NASAL CONGESTION, ST, PROD COUGH, FATIGUE X 1 WEEK. HEADACHE 10/10 SINCE YESTERDAY. REPORTS CHILLS TDOAY. B EYE SWELLING. PT REPORTS SHE HAS TWO + COVIDS AT WORK. PT REPORTS SOB. RR EVEN AND UNLABORED. R EXP WHEEZES AUSCULTATED. DENIES N/V/D, CHEST PAIN PMH- ASHA ALLERGIES- CODEINE
[2020-01-14 15:48] VITALS: BP 119/79
--- NOTE | 2020-01-14 15:48 | NUR ---
Patient discharged with v/s stable. Written and verbal after care instructions given and explained. Patient alert, oriented and verbalized understanding of instructions. Ambulatory with steady gait. All questions addressed prior to discharge. ID band removed. Patient advised to follow up with PMD. Rx of FLONASE, LORATIDINE AND PRMETHAZINE given. Patient educated on indication of medication including possible reaction and side effects. Opportunity to ask questions provided and answered.
--- NOTE | 2020-01-14 15:48 | NUR ---
COVID SWAB COLLECTED AND SERETA CALLED FROM LAB FOR DIRT BIKE RACER
== END 2020-01-14 15:48 | disposition home or self-care (01) ==
LOC: MED 14:55 → EEVIPCON 14:55 → MED 15:48
DX: B34.9 Viral infection, unspecified (principal); J45.909 Unspecified asthma, uncomplicated; J30.9 Allergic rhinitis, unspecified; Z88.6 Allergy status to analgesic agent; Z20.828 Contact with and (suspected) exposure to other viral communicable diseases
CPT/HCPCS: 99283; C9803; U0003; 36415

== ENCOUNTER 2020-03-21 14:54 | Emergency (ER) | payer OTHER, SELFPAY ==
[~2020-03-21] VITALS: Ht 165.1 cm; Wt 86.2 kg
[2020-03-21 15:01] VITALS: BP 115/74
[2020-03-21 15:02] VITALS: BP 145/75
--- NOTE | 2020-03-21 15:27 | NUR ---
50/F BIB SELF C/O HEADACHE , BODY ACHES, NAUSEA, RUQ,RLQ ABDOMINAL PAIN , WEAKNESS , LOSS OF SMELL X 3 DAYS. COVID TESTED X 3 TIMES NEGATIVE. LAST COVID TESTED 2 MONTHS AGO & NEGATIVE. MED HX:HLD, ASTHMA. PATIENT STATES PAIN OF 9/10 AT THIS TIME.
[2020-03-21] MEDS ORDERED: KETOROLAC 30 MG/ML VIAL IM ONE (15:35)
--- NOTE | 2020-03-21 15:39 | NUR ---
PT AMB TO BED 4.
--- NOTE | 2020-03-21 15:47 | NUR ---
LAB AT BEDSIDE.
[2020-03-21 15:53] LABS: BASOPHILS # (AUTO) 0.1 K/uL (0.00-0.22); BASOPHILS % (AUTO) 0.8 % (0.0-2.0); EOSINOPHILS # (AUTO) 0.1 K/uL (0-0.4); EOSINOPHILS % (AUTO) 1.8 % (0.0-4.0); HEMOGLOBIN 13.5 g/dL (12.0-16.0); LYMPHOCYTES # (AUTO) 2.9 K/uL (2.5-16.5); LYMPHOCYTES % (AUTO) 41.3 % (20.5-51.1); MEAN CORPUSCULAR HEMOGLOBIN 31 pg (27-31); MEAN CORPUSCULAR HGB CONC 33 g/dL (33-37); MEAN CORPUSCULAR VOLUME 94.7 fL (80-94); MONOCYTES # (AUTO) 0.4 K/uL (0.8-1.0); MONOCYTES % (AUTO) 6.2 % (1.7-9.3); NEUTROPHILS # (AUTO) 3.5 K/uL (1.8-7.7); NEUTROPHILS % (AUTO) 49.9 % (42.2-75.2); PLATELET COUNT (AUTO) 337 K/uL (140-450); RED BLOOD CELL COUNT(AUTO) 4.32 MIL/uL (4.20-5.40)
[2020-03-21 16:10] LABS: ALBUMIN 3.9 g/dL (3.4-5.0); ANION GAP 17.5 (8-16); CARBON DIOXIDE 24.2 mmol/L (21-32); CREATININE 0.8 mg/dL (0.6-1.3); POTASSIUM 3.7 mmol/L (3.5-5.1); TOTAL BILIRUBIN 0.2 mg/dL (0.0-1.0)
[2020-03-21 18:04] VITALS: BP 124/68
--- NOTE | 2020-03-21 18:04 | NUR ---
Patient discharged with v/s stable. Written and verbal after care instructions given and explained. Patient alert, oriented and verbalized understanding of instructions. Ambulatory with steady gait. All questions addressed prior to discharge. ID band removed. Patient advised to follow up with PMD. Rx of zofran and bentyl given. Patient educated on indication of medication including possible reaction and side effects. Opportunity to ask questions provided and answered.
== END 2020-03-21 18:04 | disposition home or self-care (01) ==
LOC: MED 14:54
DX: R11.2 Nausea with vomiting, unspecified (principal); J45.909 Unspecified asthma, uncomplicated; Z88.6 Allergy status to analgesic agent; Z90.49 Acquired absence of other specified parts of digestive tract; Z90.710 Acquired absence of both cervix and uterus
CPT/HCPCS: 36415; 74018; 80053; 81002; 83690; 85025; 96372; 99284; J1885

== ENCOUNTER 2023-01-23 14:30 | Emergency (ER) | payer OTHER ==
[~2023-01-23] VITALS: Ht 162.6 cm; Wt 90.7 kg
[2023-01-23 15:16] VITALS: BP 128/83
[2023-01-23] MEDS ORDERED: ACETAMINOPHEN EXTRA STRENGTH 500 MG TAB PO ONE (15:35)
[2023-01-23] MEDS ORDERED: IBUP-2218 PO (15:35)
[2023-01-23] MEDS ORDERED: ACET-10509 PO (15:36)
[2023-01-23] MEDS ORDERED: BENZ200C4 PO (15:37)
[2023-01-23 16:42] VITALS: BP 121/83
--- NOTE | 2023-01-23 16:42 | NUR ---
Patient discharged with v/s stable. Written and verbal after care instructions FOR UPPER RESPIRATORY INFECTION,COUGH AND GENERAL HEADACHE given and explained. Patient alert, oriented and verbalized understanding of instructions. Ambulatory with steady gait. All questions addressed prior to discharge. ID band removed. Patient advised to follow up with PMD. Rx of TYLENOL XTRA STRENGTH,BENZONATATE AND IBUPROFEN given. Opportunity to ask questions provided and answered.
== END 2023-01-23 16:42 | disposition home or self-care (01) ==
LOC: MED 14:30
DX: U07.1 COVID-19 (principal); J06.9 Acute upper respiratory infection, unspecified; R51.9 Headache, unspecified; J45.909 Unspecified asthma, uncomplicated; Z88.5 Allergy status to narcotic agent; Z79.899 Other long term (current) drug therapy
CPT/HCPCS: 99283

== ENCOUNTER 2023-08-09 09:49 | Emergency (ER) | payer OTHER ==
[~2023-08-09] VITALS: Ht 162.6 cm; Wt 88.5 kg
[~2023-08-09 09:49] MED LIST: ACET-10509 PO; BENZ200C4 PO; IBUP-2218 PO
[2023-08-09 10:14] VITALS: BP 114/73; PULSE 95; RESP 20; TEMP 98; O2SAT 97
[2023-08-09] MEDS ORDERED: KETOROLAC 30 MG/ML VIAL IM ONE (11:00)
[2023-08-09] MEDS ORDERED: PROCHLORPERAZINE 10 MG/2 ML VIAL IM ONE (11:00)
[2023-08-09 11:06] LABS: BASOPHILS % (AUTO) 0.5 % (0.0-2.0); EOSINOPHILS # (AUTO) 0.1 K/uL (0-0.4); EOSINOPHILS % (AUTO) 1.6 % (0.0-4.0); HEMATOCRIT 39.2 % (36-48); HEMOGLOBIN 13.1 g/dL (12.0-16.0); LYMPHOCYTES # (AUTO) 2.8 K/uL (2.5-16.5); LYMPHOCYTES % (AUTO) 41.5 % (20.5-51.1); MEAN CORPUSCULAR HEMOGLOBIN 32 pg (27-31); MEAN CORPUSCULAR HGB CONC 33 g/dL (33-37); MEAN CORPUSCULAR VOLUME 94.7 fL (80-94); MONOCYTES # (AUTO) 0.4 K/uL (0.8-1.0); MONOCYTES % (AUTO) 5.3 % (1.7-9.3); NEUTROPHILS # (AUTO) 3.4 K/uL (1.8-7.7); NEUTROPHILS % (AUTO) 51.1 % (42.2-75.2); PLATELET COUNT (AUTO) 278 K/uL (140-450); RED BLOOD CELL COUNT(AUTO) 4.14 MIL/uL (4.20-5.40); RED CELL DISTRIBUTION WIDTH 14.3 % (11.6-13.7); WHITE BLOOD COUNT (AUTO) 6.7 K/uL (4.8-10.8)
[2023-08-09 11:20] LABS: ALBUMIN 3.1 g/dL (3.4-5.0); CALCIUM 8.8 mg/dL (8.5-10.1); CARBON DIOXIDE 26.6 mmol/L (21-32); CREATININE 0.8 mg/dL (0.6-1.3); POTASSIUM 3.6 mmol/L (3.5-5.1); TOTAL BILIRUBIN 0.3 mg/dL (0.0-1.0); TOTAL PROTEIN, SERUM 6.9 g/dL (6.4-8.2)
[2023-08-09 11:32] LABS: APPEARANCE,URINE CLEAR (CLEAR); BILIRUBIN,URINE NEGATIVE (NEGATIVE); BLOOD, URINE NEGATIVE (NEGATIVE); COLOR,URINE YELLOW (YELLOW); LEUKOCYTE ESTERASE ,URINE NEGATIVE (NEGATIVE); NITRITE, URINE NEGATIVE (NEGATIVE); PROTEIN,URINE NEGATIVE (NEGATIVE); UGLUCOSE 3+ (NEGATIVE); UROBILINOGEN,URINE 0.2 EU/dL (0.2 - 1)
[2023-08-09] MEDS ORDERED: ALUMINUM HYD/MAG/SIMETHICONE 30 ML UDC PO ONE (12:45)
[2023-08-09] MEDS ORDERED: IBUP-2213 PO (13:04)
[2023-08-09] MEDS ORDERED: AMOX-1230 PO (13:04)
[2023-08-09 13:14] VITALS: BP 100/55; PULSE 79; RESP 18; TEMP 97; O2SAT 97
== END 2023-08-09 13:10 | disposition home or self-care (01) ==
LOC: MED 09:49
DX: K57.32 Diverticulitis of large intestine without perforation or abscess without bleeding (principal); K57.30 Diverticulosis of large intestine without perforation or abscess without bleeding; J45.909 Unspecified asthma, uncomplicated; E11.9 Type 2 diabetes mellitus without complications; K21.9 Gastro-esophageal reflux disease without esophagitis; Z79.899 Other long term (current) drug therapy; Z79.2 Long term (current) use of antibiotics; Z79.1 Long term (current) use of non-steroidal anti-inflammatories (NSAID); Z88.5 Allergy status to narcotic agent
CPT/HCPCS: 36415; 74176; 80053; 81003; 83690; 85025; 96372; 99285; J0780; J1885; Q0163